=== PATIENT | female | born 1955 | race Caucasian/White ===

== ENCOUNTER → 2017-05-19 | Outpatient (CLI) | payer BC ==
[~2017-05-19] MED LIST: ACYCLOVIR PO; BENTYL10 MG PO; CYCLOBENZAPRINE5 MG PO; LORAZEPAM INJ 2 MG/ML VIAL ONE; OMEPRAZOLE20 MG PO; PAROXETINE HCL20 MG PO; PROMETHAZINE HC25 M1 PO; RED YEAST RICE600 MG PO; TYLENOL WITH C1 EACH PO; XANAX2 MG PO
--- NOTE | 2017-05-21 13:36 | Diagnostic Imaging Report ---
History: Neck and left shoulder pain Comparison studies: None Technique: Sagittal T1, T2 and IR, axial T2 and axial gradient echo Intravenous contrast: None Findings: Alignment: Straightening of the cervical lordosis. Mild grade 1 retrolistheses of C5 over C6. No scoliosis. Cervicomedullary junction: No abnormalities. Patent foramen magnum. Soft tissues: No T2 hyperintense inflammatory changes. Spinal cord: Normal in size and signal from the foramen magnum through T4 Vertebrae: Normal in height and signal intensity. No fractures, infection or neoplasm. Degenerative changes: Disc degeneration with loss of T2 signal throughout the cervical spine with decrease disc space from C3 through C6. No Modic type I changes. C2-C3: Small central disc osteophyte complex. Patent canal and foramina C3-C4: Right uncinate process hypertrophy and facet hypertrophy without significant canal stenosis and mild right foraminal narrowing C4-C5: Bilateral uncinate process and facet hypertrophy without significant canal stenosis and mild bilateral foraminal narrowing C5-C6: Diffuse disc osteophyte complex, bilateral uncinate process hypertrophy and facet hypertrophy results in mild canal stenosis and moderate bilateral foraminal narrowing more prominent on the left C6-C7: No abnormalities. C7-T1: No abnormalities. IMPRESSION: 1. Moderate bilateral foraminal narrowing more prominent on the left and mild canal stenosis at C5-6 secondary to degenerative changes. 2. Mild foraminal narrowing at C3-4 on the right and C4-5 bilaterally, secondary to degenerative changes. 3. Diffuse disc degeneration without Modic type I changes. Other degenerative changes as described above Signed by: DR Vicente Fried M.D. on 05/21/2017 1:33 PM
== END ==
LOC: MRI 13:09
PROVIDERS: ATTEND Family Medicine
DX: M50.321 Other cervical disc degeneration at C4-C5 level (principal)
CPT/HCPCS: 72141; J2060

== ENCOUNTER → 2017-09-19 | Day surgery (SDC) | payer BC ==
[~2017-09-19] MED LIST changes: +DICYCLOMINE HCL10 MG PO; +FENTANYL CITRATE/PF 100MCG/2 ML INJ ONE; +LIDOCAINE HCL 2% LOCAL INJ 5 ML SDV VIAL INJ ONE; -LORAZEPAM INJ 2 MG/ML VIAL ONE; +LOSARTAN POTAS100 MG PO; +METOCLOPRAMIDE10 MG PO; +MIDAZOLAM HCL 2 MG/2 ML VIAL ONE; +PANTOPRAZOLE SO40 MG PO; +PROPOFOL IV EMULSION 10 MG/ML 50 ML VIAL ONE; +ZOFRAN ODT4 MG PO
[2017-09-19 12:15] LABS: BASOPHILS # (AUTO) 0.1 (0.0-0.1); BASOPHILS % 1.2 % (0.0-1.0); EOSINOPHILS # (AUTO) 0.2 (0.0-0.4); EOSINOPHILS % 3.3 % (0.0-6.0); HEMATOCRIT 41.4 % (34.2-44.1); HEMOGLOBIN 14.2 g/dL (12.0-16.0); LYMPHOCYTES # (AUTO) 1.5 (1.0-3.2); LYMPHOCYTES % 29.3 % (18.0-39.1); MEAN CORPUSCULAR HEMOGLOBIN 31.2 pg (28-32); MEAN CORPUSCULAR HGB CONC 34.3 g/dL (31-35); MONOCYTES # (AUTO) 0.7 (0.2-0.8); NEUTROPHILS # (AUTO) 2.7 (2.1-6.9); PLATELET COUNT 259 x10e3/uL (140-360); RED BLOOD COUNT 4.55 x10e6/uL (3.6-5.1)
[2017-09-19 12:30] LABS: INR 0.98; PROTHROMBIN TIME 12.2 seconds (11.9-14.5)
[2017-09-19 12:31] LABS: PARTIAL THROMBOPLASTIN TIME 26.8 seconds (23.8-35.5)
[2017-09-19 12:37] LABS: ALANINE AMINOTRANSFERASE 86 IU/L (0-55); ALBUMIN 4.4 g/dL (3.5-5.0); ALBUMIN/GLOBULIN RATIO 1.2 (0.8-2.0); ALKALINE PHOSPHATASE 104 IU/L (40-150); ANION GAP 14.9 mmol/L (8-16); BLOOD UREA NITROGEN 12 mg/dL (7-26); BUN/CREATININE RATIO 15 (6-25); CARBON DIOXIDE 24 mmol/L (22-29); CHLORIDE 109 mmol/L (98-107); CREATININE, SERUM 0.78 mg/dL (0.57-1.11); EST GLOMERULAR FILTRATION RATE > 60 ML/MIN (60-); GLUCOSE 97 mg/dL (74-118); POTASSIUM 3.9 mmol/L (3.5-5.1); SODIUM 144 mmol/L (136-145)
--- NOTE | 2017-09-19 14:00 | Operative Report ---
DATE OF PROCEDURE: September 19, 2017 REFERRING PHYSICIAN: Dr. Sveta Melo PROCEDURE PERFORMED: Esophagogastroduodenoscopy with esophageal dilatation. INDICATIONS FOR PROCEDURE: Dysphagia to solids, history of nausea and vomiting. MEDICATION: Patient was done under MAC. Please see anesthesiologist's note. PROCEDURE: With the patient in the left lateral decubitus position, the flexible fiberoptic Olympus gastroscope was introduced into the esophagus under direct visualization without any difficulty. There was some patchy erythema noted in the distal esophagus. A mild stricture was noted at the GE junction that was dilated to size 52[place]. The scope was then advanced with ease into the stomach traversing a small sliding hiatal hernia. Mucosa overlying the antrum and the body revealed some diffuse erythema and mild to moderate edema, and biopsies were obtained and sent to stain for H. pylori. The pylorus was of normal contour and shape. It was intubated with ease. The scope was advanced all the way to the 2nd portion of the duodenum. The scope was then withdrawn slowly. Mucosa overlying the proximal 2nd portion and the duodenal bulb appeared to be within normal limits. The scope was then withdrawn back into the stomach and retroflexed. The mucosa overlying the fundus and the cardia appeared to be within normal limits. The scope was then straightened out. The stomach was decompressed. The scope subsequently withdrawn. Patient tolerated the procedure well. IMPRESSION 1. Distal esophagitis, mild. 2. Mild stricture at gastroesophageal junction dilated to size 52[place]. 3. Small sliding hiatal hernia. 4. Gastritis, biopsied. Biopsies sent to stain for Helicobacter pylori. PLAN: Follow up histology. Continue Protonix 40 mg 1 p.o. a.c. b.i.d. Job#: [id number] RI cc:SVETA MELO MD
== END | disposition home or self-care (01) ==
LOC: OR 11:29
PROVIDERS: ATTEND Internal Medicine Gastroenterology
DX: K29.70 Gastritis, unspecified, without bleeding (principal); K22.2 Esophageal obstruction; K20.9 Esophagitis, unspecified; K44.9 Diaphragmatic hernia without obstruction or gangrene; K59.00 Constipation, unspecified; K21.9 Gastro-esophageal reflux disease without esophagitis; B17.10 Acute hepatitis C without hepatic coma; F32.9 Major depressive disorder, single episode, unspecified; F41.9 Anxiety disorder, unspecified; Z88.6 Allergy status to analgesic agent; Z91.041 Radiographic dye allergy status; Z01.810 Encounter for preprocedural cardiovascular examination; Z87.891 Personal history of nicotine dependence
CPT/HCPCS: 36415; 43239; 43450; 80053; 85025; 85610; 85730; 93005; J2001; J2250

== ENCOUNTER 2017-09-23 13:00 | Emergency (ER) | payer BC ==
[~2017-09-23] VITALS: Ht 160 cm; Wt 65.3 kg
[~2017-09-23 13:00] MED LIST changes: -FENTANYL CITRATE/PF 100MCG/2 ML INJ ONE; -LIDOCAINE HCL 2% LOCAL INJ 5 ML SDV VIAL INJ ONE; -MIDAZOLAM HCL 2 MG/2 ML VIAL ONE; -PROPOFOL IV EMULSION 10 MG/ML 50 ML VIAL ONE
[2017-09-23 14:10] LABS: BILIRUBIN,URINE NEGATIVE (NEGATIVE); CLARITY,URINE SL CLOUDY (CLEAR); COLOR,URINE YELLOW (YELLOW); KETONES,URINE NEGATIVE (NEGATIVE); LEUKOCYTE ESTERASE ,URINE TRACE (NEGATIVE); NITRITE,URINE NEGATIVE (NEGATIVE); PROTEIN,URINE DIPSTICK NEGATIVE (NEGATIVE); URINE UROBILINOGEN 0.2 mg/dL (0.2 - 1)
[2017-09-23 14:21] LABS: BACTERIA,URINE MANY /HPF; EPITHELIAL CELLS,URINE MODERATE /LPF; TRANSITIONAL EPI CELLS,URINE FEW
[2017-09-23 14:21] LABS: BASOPHILS # (AUTO) 0.1 (0.0-0.1); BASOPHILS % 1.5 % (0.0-1.0); EOSINOPHILS # (AUTO) 0.1 (0.0-0.4); EOSINOPHILS % 2.9 % (0.0-6.0); HEMATOCRIT 39.8 % (34.2-44.1); HEMOGLOBIN 13.7 g/dL (12.0-16.0); LYMPHOCYTES # (AUTO) 1.7 (1.0-3.2); LYMPHOCYTES % 36.5 % (18.0-39.1); MEAN CORPUSCULAR HEMOGLOBIN 31.6 pg (28-32); MEAN CORPUSCULAR HGB CONC 34.4 g/dL (31-35); MEAN CORPUSCULAR VOLUME 91.9 fL (81-99); MONOCYTES # (AUTO) 0.6 (0.2-0.8); MONOCYTES % 14.2 % (4.4-11.3); NEUTROPHILS % 44.7 % (38.7-80.0); PLATELET COUNT 265 x10e3/uL (140-360); RED BLOOD COUNT 4.33 x10e6/uL (3.6-5.1); RED CELL DISTRIBUTION WIDTH 12.8 % (11.7-14.4)
[2017-09-23 14:40] LABS: ALANINE AMINOTRANSFERASE 96 IU/L (0-55); ALBUMIN 4.4 g/dL (3.5-5.0); ALBUMIN/GLOBULIN RATIO 1.3 (0.8-2.0); ALKALINE PHOSPHATASE 94 IU/L (40-150); ANION GAP 14.6 mmol/L (8-16); BLOOD UREA NITROGEN 12 mg/dL (7-26); BUN/CREATININE RATIO 15 (6-25); CALCIUM 9.8 mg/dL (8.4-10.2); CARBON DIOXIDE 25 mmol/L (22-29); CHLORIDE 105 mmol/L (98-107); CREATININE, SERUM 0.81 mg/dL (0.57-1.11); EST GLOMERULAR FILTRATION RATE > 60 ML/MIN (60-); GLUCOSE 95 mg/dL (74-118); POTASSIUM 3.6 mmol/L (3.5-5.1); SODIUM 141 mmol/L (136-145)
[2017-09-23] MEDS ORDERED: ONDANSETRON HCL INJ 2 MG/ML VIAL IV NR (15:15)
[2017-09-23] MEDS ORDERED: HYDROCODONE/APAP 10MG-325MG TAB PO ONE (15:15)
[2017-09-23] MEDS ORDERED: SODIUM CHLORIDE 0.9% 1000ML 1,000 ML IV ONE (15:30)
[2017-09-23] MEDS ORDERED: HYDROMORPHONE 1MG/1ML INJ IV NR (15:30)
--- NOTE | 2017-09-23 16:52 | Diagnostic Imaging Report ---
PROCEDURE:US GALLBLADDER COMPARISON:None. INDICATIONS:abdominal pain FINDINGS: LIVER: Size:14.8 cm in the right midclavicular line, normal Appearance:Increased echogenicity, smooth contour Mass:No focal solid masses. Multiple simple hepatic cysts measuring 1.5 x 1.1 x 1.3 cm in the right hepatic lobe, 2.6 x 1.2 x 2.1 cm in the right hepatic lobe, and 1.1 x 0.7 x 1.1 cm in the left hepatic lobe. GALLBLADDER: Stones/Sludge:None Appearance:No wall thickening, pericholecystic fluid or hydrops. Sonographic Espinoza's Sign:Negative BILE DUCTS: Intrahepatic Ducts:No dilation Extrahepatic Ducts:Common bile duct measures 0.2 cm, no dilatation. PANCREAS: Visualized portions of the neck and proximal body are normal. RIGHT KIDNEY: Size:10 cm in length Echogenicity:Normal Collecting System:No hydronephrosis Stone:None Cyst/Mass:None VESSELS: Aorta:Visualized portions are normal. Inferior Vena Cava:Visualized portions are normal. Main Portal Vein:0.9 cm, normal size with hepatopetal flow. FREE FLUID: No ascites or pleural effusions. CONCLUSION: 1. No cholelithiasis or sonographic evidence of acute cholecystis. 2. Hepatic steatosis. 3. Multiple hepatic simple cysts. Dictated by: Stephen Bowman M.D. on 09/23/2017 at 16:56 Electronically approved by: Stephen Bowman M.D. on 09/23/2017 at 16:56
--- NOTE | 2017-09-23 17:00 | Diagnostic Imaging Report ---
PROCEDURE: CT ABDOMEN AND PELVIS WITHOUT CONTRAST TECHNIQUE: The abdomen and pelvis were scanned utilizing a multidetector helical scanner from the diaphragm to the lesser trochanter. No IV contrast was administered because of contrast allergy. Coronal and sagittal multiplanar reformations were obtained. DLP: 218.83 mGy-cm COMPARISON: None. INDICATIONS: ABDOMINAL PAIN RLQ FINDINGS: ABSENCE OF INTRAVENOUS CONTRAST DECREASES SENSITIVITY FOR DETECTION OF FOCAL LESIONS AND VASCULAR PATHOLOGY. LOWER THORAX: Normal. HEPATOBILIARY: Multiple hepatic cysts measure up to 2.8 cm in size. Additional smaller hypodensities are too small to characterize but also probably represent cysts. No biliary ductal dilatation. No radiopaque gallstones or gallbladder wall thickening. SPLEEN: No splenomegaly. PANCREAS: No focal masses or ductal dilatation. ADRENALS: No adrenal nodules. KIDNEYS/URETERS: No hydronephrosis, stones, or suspicious contour abnormalities. PELVIC ORGANS/BLADDER: Unremarkable. PERITONEUM / RETROPERITONEUM: No free air or fluid. LYMPH NODES: No lymphadenopathy. VESSELS: Mild atherosclerotic calcification. GI TRACT: No distention or wall thickening. The appendix is normal. BONES AND SOFT TISSUES: Degenerative changes of the thoracolumbar spine with severe disc space narrowing at L5-S1 with vacuum disc and end plate sclerosis. IMPRESSION: No acute abnormalities in the abdomen and pelvis. No evidence of appendicitis. Dictated by: Stephen Bowman M.D. on 09/23/2017 at 17:04 Electronically approved by: Stephen Bomwan M.D. on 09/23/2017 at 17:04
[2017-09-23] MEDS ORDERED: HYDROMORPHONE 1MG/1ML INJ IV STA (17:12)
[2017-09-23 19:46] VITALS: BP 183/97
== END 2017-09-23 20:06 | disposition home or self-care (01) ==
LOC: ER 13:00
DX: R10.84 Generalized abdominal pain (principal); R11.0 Nausea; I10 Essential (primary) hypertension
CPT/HCPCS: 36415; 74176; 76705; 80053; 81001; 83690; 85025; 99284; J1170; J2405; J7030

== ENCOUNTER → 2017-09-30 | Outpatient (CLI) | payer BC ==
[~2017-09-30] MED LIST changes: +SINCALIDE 3 MCG/VIAL INJ ONE
--- NOTE | 2017-09-30 16:55 | Diagnostic Imaging Report ---
Hepatobiliary Scan with Gallbladder Ejection Fraction Clinical information: 61 F with chronic recurrent upper abdominal pain. Report: Following intravenous administration of 6.6 millicuries of Tc-99m mebrofenin, dynamic images of the abdomen in the anterior projection were obtained through 38 minutes. Sincalide (CCK analog) 1.4 micrograms was administered intravenously over 30 minutes with additional imaging for determination of gallbladder ejection fraction. Perfusion to the liver is normal. Extraction of tracer from the blood pool by the liver parenchyma is normal. Tracer is seen promptly within the biliary tract. The gallbladder begins to fill by 32 minutes post-injection of tracer and fills adequately. Tracer is seen in the small bowel by 12 minutes. The gallbladder ejection fraction with administration of sincalide is 69% (normal greater than 40%). Impression: 1. Filling of the gallbladder excludes the diagnosis of acute cystic duct obstruction/acute cholecystitis. 2. Normal gallbladder ejection fraction of 69% does not support the clinical diagnosis of chronic cholecystitis/gallbladder dyskinesia. Signed by: Dr. Sonia De Dios M.D. on 09/30/2017 4:51 PM
== END ==
LOC: US 09:10
PROVIDERS: ATTEND Internal Medicine Gastroenterology
DX: R10.10 Upper abdominal pain, unspecified (principal); R11.0 Nausea; B19.20 Unspecified viral hepatitis C without hepatic coma
CPT/HCPCS: 78227; A9537; J2805

== ENCOUNTER → 2017-11-08 | Outpatient (CLI) | payer BC ==
[~2017-11-08] MED LIST changes: +FENTANYL CITRATE/PF 100MCG/2 ML INJ ONE; +MIDAZOLAM HCL 2 MG/2 ML VIAL ONE; -SINCALIDE 3 MCG/VIAL INJ ONE
--- NOTE | 2017-11-08 14:21 | Diagnostic Imaging Report ---
PROCEDURE:IR BIOPSY LIVER COMPARISON:CT abdomen and pelvis without contrast 09/23/2017 Preprocedure diagnosis: Possible cirrhosis Post procedure diagnosis: Possible cirrhosis Sedation/anesthesia: Fentanyl 100 mcg intravenous, Versed 1 mg intravenous. The patient's heart rate and pulse oximetry were continuously monitored by the interventional radiology nurse. Blood pressure was monitored at 5 minute intervals. Estimated blood loss: Less than 5 cc Blood products administered: None Implants/grafts: None Additional medications: Lidocaine 1% local anesthesia SAMPLES: Core biopsy specimens x3 Complications: No immediate Disposition: Radiology holding area Condition at completion of procedure: Stable FINDINGS: After informed consent was obtained, the patient was placed in the right anterior oblique position. A safe entry route into the right lobe of the liver was identified by ultrasound and the overlying skin was prepped and draped in usual sterile fashion. Lidocaine 1% was delivered for local anesthesia. Under ultrasound guidance, a 17 gauge needle guide was advanced into the right lobe of the liver. Subsequently, a total of 3 core biopsy specimens were obtained using an 18 gauge, 2 cm throw core biopsy apparatus. Fur Operator sonographic images were stored. Specimens were placed in formalin for pathologic analysis. At the conclusion of sampling a small amount of Gelfoam slurry was injected through the guide into the parenchymal tract and along the liver capsule for augmentation of hemostasis. Post-procedure sonographic images of the liver showed no perihepatic hematoma. A sterile dressing was applied. The patient tolerated the procedure well and there were no immediate post-procedural complications. The patient was transferred in good condition to the recovery area for observation. CONCLUSION: Uncomplicated ultrasound-guided random liver biopsy. Samples sent to Pathology for analysis. Dictated by: Yovani Landon M.D. on 11/08/2017 at 12:52 Electronically approved by: Yovani Landon M.D. on 11/08/2017 at 12:52
--- NOTE | 2017-11-08 14:21 | Diagnostic Imaging Report ---
PROCEDURE:ULTRASOUND GUIDANCE FOR PROCEDURE COMPARISON:None. INDICATIONS: Possible Cirrhosis PROCEDURE: See conclusion CONCLUSION: For full dictated report, please refer to "BIOPSY LIVER" from 11/08/2017. Dictated by: Yovani Landon M.D. on 11/08/2017 at 12:53 Electronically approved by: Yovani Landon M.D. on 11/08/2017 at 12:53
== END ==
LOC: US 08:28
PROVIDERS: ATTEND Internal Medicine Gastroenterology
DX: K76.9 Liver disease, unspecified (principal); K20.9 Esophagitis, unspecified; K29.70 Gastritis, unspecified, without bleeding; R11.0 Nausea; R10.31 Right lower quadrant pain; I10 Essential (primary) hypertension
CPT/HCPCS: 47000; 76942; 88307; 88313; J2250

== ENCOUNTER 2018-01-31 05:00 | Emergency (ER) | payer BC, MEDICARE ==
[~2018-01-31] VITALS: Ht 160 cm; Wt 65.3 kg
[~2018-01-31 05:00] MED LIST changes: -FENTANYL CITRATE/PF 100MCG/2 ML INJ ONE; -MIDAZOLAM HCL 2 MG/2 ML VIAL ONE
--- OUTSIDE RECORDS SUMMARY | 2018-01-31 05:03 | XMS REPORT | Continuity of Care Document ---
Author Author [facility] Interface Address Unknown Phone Unavailable Problems Problem Status Onset Date Classification Date Reported Comments Source M54.2 - CERVICALGIA [facility] [place] [facility] Diagnosis: Abdominal pain 12/09/2013 12/11/2013 [facility] Discharge Diagnosis: Nausea and vomiting 12/09/2013 12/11/2013 [facility] Discharge Diagnosis: Gastroenteritis, acute 12/08/2013 12/11/2013 [facility] VOMITING Active 12/08/2013 [facility] Anxiety Resolved Problem [facility] Depression Resolved Problem 03/11/2017 [facility] Medications Medication Details Route Status Patient Instructions Ordering Provider Order Date Source Alprazolam 0.25 MG Oral Tablet [Xanax] 0.25 mg=1 tab, PO, TID, Anxiety, # 12 tab, 0 Refill(s) Active 12/09/2013 [facility] Promethazine Hydrochloride 25 MG Oral Tablet [Phenergan] 25 mg=1 tab, PO, Q4H, Nausea, # 15 tab, 0 Refill(s) Active 12/09/2013 [facility] Pepcid 20 mg, 2 mL, Route: IV, Drug form: INJ, ONCE, Dosing Weight 61.364, kg, Start date: 12/09/13 2:21:00, Stop date: 12/09/13 2:21:00Notes: (Same as: Pepcid) Can be dilute in 5-10cc NS IVP: Slow IV push over at least 2 minutes. Inactive 12/09/2013 [facility] Ativan 1 mg, 0.5 mL, Route: IVP, Drug form: INJ, ONCE, Dosing Weight 61.364, kg, Priority: STAT, Start date: 12/09/13 2:20:00, Stop date: 12/09/13 2:20:00Notes: (Same as: Ativan) Inactive 12/09/2013 [facility] Phenergan 12.5 mg, 0.5 mL, Route: IVPB, ONCE, Dosing Weight 61.364, kg, Priority: STAT, Start date: 12/09/13 2:00:00, Stop date: 12/09/13 2:00:00Notes: Do not give IV push. (Same as: Phenergan) Inactive 12/09/2013 [facility] Reglan 10 mg, 2 mL, Route: IVP, Drug form: INJ, ONCE, Dosing Weight 61.364, kg, Priority: STAT, Start date: 12/09/13 2:00:00, Stop date: 12/09/13 2:00:00Notes: (Same as: Reglan) Inactive 12/09/2013 [facility] Ketorolac 30 mg, Route: IVP, Drug form: INJ, ONCE, Dosing Weight 61.364, kg, Priority: STAT, Start date: 12/09/13 0:32:00, Stop date: 12/09/13 0:32:00 Inactive 12/09/2013 [facility] Zofran 4 mg, Route: IVP, Drug form: INJ, ONCE, Dosing Weight 61.364, kg, Priority: STAT, Start date: 12/09/13 0:32:00, Stop date: 12/09/13 0:32:00 Inactive 12/09/2013 [facility] Sodium Chloride 0.154 MEQ/ML Injectable Solution 1,000 mL, 1,000 ml/hr, Infuse Over: 1 hr, Route: IV, ONCE, Priority: STAT, Dosing Weight 61.364 kg, Start date: 12/09/13 0:31:00, Duration: 1 doses or times, Stop date: 12/09/13 0:31:00 Inactive 12/09/2013 [facility] Tylenol 650 mg, Route: PO, Drug form: TAB, ONCE, Dosing Weight 62.273, kg, Priority: STAT, Start date: 12/08/13 12:16:00, Stop date: 12/08/13 12:16:00 Inactive 12/08/2013 [facility] Morphine 4 mg, Route: IVP, Drug form: INJ, ONCE, Dosing Weight 62.273, kg, Priority: STAT, Start date: 12/08/13 11:39:00, Stop date: 12/08/13 11:39:00 Inactive 12/08/2013 [facility] Ondansetron 4 MG Disintegrating Tablet [Zofran] 4 mg=1 tab, PO, BID, Nausea and Vomiting, Dissolve tab under tongue, # 10 tab, 0 Refill(s)Special Instructions: Dissolve tab under tongue Active 12/08/2013 [facility] Ondansetron 4 mg, 2 mL, Route: IVP, Drug form: INJ, ONCE, Dosing Weight 62.273, kg, Priority: STAT, Start date: 12/08/13 11:13:00, Stop date: 12/08/13 11:13:00Notes: (Same as: Zofran) Inactive 12/08/2013 [facility] Sodium Chloride 0.154 MEQ/ML Injectable Solution 1,000 mL, 1000 ml/hr, Infuse Over: 1 hr, Route: IV, 1,000, Drug form: INJ, ONCE, Priority: STAT, Dosing Weight 62.273 kg, Start date: 12/08/13 11:13:00, Duration: 1 doses or times, Stop date: 12/08/13 11:13:00 Inactive 12/08/2013 [facility] Saline Flush 0.9% 10 mL, Route: IVP, Drug Form: INJ, Dosing Weight 62.273, kg, PRN, PRN Line Flush, Start date: 12/08/13 11:13:00, Duration: 30 day, Stop date: 01/07/14 11:12:00Notes: (Same as: BD Posiflush) Inactive 12/08/2013 [facility] Allergies, Adverse Reactions, Alerts Substance Category Reaction Severity Reaction type Status Date Reported Comments Source iodinated radiocontrast dyes Assertion Drug allergy Active [facility] [place] morphine Assertion Drug allergy Active [facility] [place] Immunizations Immunization Date Given Site Status Last Updated Comments Source Results Order Name Results Value Reference Range Date Interpretation Comments Source Spine cervical series DX Spine cervical series DX HISTORY: - CERVICALGIA TECHNIQUE: AP, lateral, bilateral oblique, and odontoid views of the cervical spine. COMPARISON: None available. FINDINGS: Grade 1 anterolisthesis of C3 on C4 is seen. There is diffuse loss of intervertebral disc space height and osteophyte formation which is worst at C4- C5 and C5-C6. Uncovertebral degenerative changes and facet arthropathy are seen throughout the mid cervical spine. There is bilateral neuroforaminal narrowing at C3-C4 and to a lesser extent at C4-C5 and C5-C6 on the left and C4-C5 on the right. Paracervical soft tissues are within normal limits. The lung apices are clear. IMPRESSION: Moderate to advanced cervical spondylosis as above. [id number] 03/08/2017 - - Read by: Efrain Marte MD Dictated Date/time: 03/09/17 08:20 Electronically Signed by: Efrain Marte MD 03/09/17 08:25 FINAL REPORT [facility] [place] URINE AND STOOL UA Urobilinogen <=1.0 mg/dL 0.1 - 1.0 12/09/2013 [facility] URINE AND STOOL UA Sq Epi Many /LPF Few /LPF 12/09/2013 [facility] URINE AND STOOL UA Nitrite Negative (12/09/13 4:15 AM) Negative 12/09/2013 [facility] URINE AND STOOL UA Leuk Est Small *ABN* (12/09/13 4:15 AM) Negative 12/09/2013 [facility] URINE AND STOOL UA Mucus Many /LPF None Seen /LPF 12/09/2013 [facility] URINE AND STOOL UA Bacteria Occasional /HPF None Seen /HPF 12/09/2013 [facility] URINE AND STOOL UA WBC 2 /HPF 0 - 5 12/09/2013 [facility] URINE AND STOOL UA RBC 29 /HPF 0 - 2 12/09/2013 [facility] URINE AND STOOL UA Turbidity Marked *ABN* (12/09/13 4:15 AM) Clear 12/09/2013 [facility] URINE AND STOOL UA Color Yellow *NA* (12/09/13 4:15 AM) Yellow 12/09/2013 [facility] URINE AND STOOL UA Protein 30 mg/dL Negative mg/dL 12/09/2013 [facility] URINE AND STOOL UA pH 6.0 5.0 - 8.0 12/09/2013 [facility] URINE AND STOOL UA Spec Grav 1.021 <=1.030 12/09/2013 [facility] URINE AND STOOL UA Blood Negative (12/09/13 4:15 AM) Negative 12/09/2013 [facility] URINE AND STOOL UA Bili Negative *NA* (12/09/13 4:15 AM) Negative 12/09/2013 [facility] URINE AND STOOL UA Ketones 80 mg/dL Negative mg/dL 12/09/2013 [facility] URINE AND STOOL UA Glucose Negative mg/dL Negative mg/dL 12/09/2013 [facility] CARDIAC ENZYMES Troponin-I null 0.00 - 0.40 12/09/2013 [facility] CARDIAC ENZYMES Total CK 69 unit/L 12 - 191 12/09/2013 [facility] CARDIAC ENZYMES CK MB 1.2 ng/mL 0.5 - 3.6 12/09/2013 [facility] CARDIAC ENZYMES CK MB Index 1.7 0.0 - 2.5 12/09/2013 [facility] CHEM PANEL Lipase Lvl 91 unit/L 73 - 393 12/09/2013 [facility] CHEM PANEL eGFR 83 mL/min/1.73m2 12/09/2013 1Result Comment: The eGFR is calculated using the CKD-EPI formula. In most young, healthy individuals the eGFR will be >90 mL/min/1.73m2. The eGFR declines with age. An eGFR of 60-89 may be normal in some populations, particularly the elderly, for whom the CKD-EPI formula has not been extensively validated. Use of the eGFR is not recommended in the following populations: Individuals with unstable creatinine concentrations, including patients and those with serious co-morbid conditions. Patients with extremes in muscle mass or diet. The data above are obtained from the National Kidney Disease Education Program (NKDEP) which additionally recommends that when the eGFR is used in patients with extremes of body mass index for purposes of drug dosing, the eGFR should be multiplied by the estimated BMI. [facility] CHEM PANEL Bili Total 0.6 mg/dL 0.2 - 1.3 12/09/2013 [facility] CHEM PANEL Albumin Lvl 4.2 g/dL 3.5 - 5.0 12/09/2013 [facility] CHEM PANEL Total Protein 7.8 g/dL 6.4 - 8.4 12/09/2013 [facility] CHEM PANEL ALT 73 unit/L 0 - 65 12/09/2013 [facility] CHEM PANEL AST 45 unit/L 0 - 37 12/09/2013 [facility] CHEM PANEL Alk Phos 107 unit/L 39 - 136 12/09/2013 [facility] CHEM PANEL Sodium Lvl 141 meq/L 135 - 145 12/09/2013 [facility] CHEM PANEL CO2 27 meq/L 24 - 32 12/09/2013 [facility] CHEM PANEL Calcium Lvl 9.5 mg/dL 8.5 - 10.5 12/09/2013 [facility] CHEM PANEL Potassium Lvl 3.6 meq/L 3.5 - 5.1 12/09/2013 [facility] CHEM PANEL Chloride Lvl 105 meq/L 95 - 109 12/09/2013 [facility] CHEM PANEL Glucose Lvl 123 mg/dL 70 - 99 12/09/2013 2Interpretive Data: Adult reference range values reflect the clinical guidelines of the [place] [employer]. [facility] CHEM PANEL BUN 8 mg/dL 7 - 22 12/09/2013 [facility] CHEM PANEL Creatinine Lvl 0.8 mg/dL 0.5 - 1.4 12/09/2013 [facility] CHEM PANEL A/G Ratio 1.2 0.7 - 1.6 12/09/2013 [facility] CHEM PANEL AGAP 12.6 meq/L 10.0 - 20.0 12/09/2013 [facility] CHEM PANEL Globulin 3.6 g/dL 2.0 - 4.0 12/09/2013 [facility] CHEM PANEL B/C Ratio 10 6 - 25 12/09/2013 [facility] HEMATOLOGY Lymphocytes 7.2 % 20.0 - 40.0 12/09/2013 [facility] HEMATOLOGY Segs 85.4 % 45.0 - 75.0 12/09/2013 [facility] HEMATOLOGY Monocytes # 0.7 K/CMM 0.0 - 0.8 12/09/2013 [facility] HEMATOLOGY Segs-Bands # 8.7 K/CMM 1.5 - 8.1 12/09/2013 [facility] HEMATOLOGY Lymphocytes # 0.7 K/CMM 1.0 - 5.5 12/09/2013 [facility] HEMATOLOGY Basophils 0.5 % 0.0 - 1.0 12/09/2013 [facility] Monocytes 6.9 % 2.0 - 12.0 12/09/2013 [facility] HEMATOLOGY Platelet 338 K/CMM 133 - 450 12/09/2013 [facility] HEMATOLOGY RDW 13.8 % 11.5 - 14.5 12/09/2013 [facility] MCHC 34.2 g/dL 32.0 - 36.0 12/09/2013 [facility] HEMATOLOGY MPV 8.8 fL 7.4 - 10.4 12/09/2013 [facility] HEMATOLOGY MCV 92.6 fL 80.0 - 98.0 12/09/2013 [facility] MCH 31.7 pg 27.0 - 31.0 12/09/[address] [facility] WBC 10.2 K/CMM 3.7 - 10.4 12/09/[address] [facility] Hgb 14.8 g/dL 12.0 - 16.0 12/09/2013 [facility] HEMATOLOGY Hct 43.1 % 36.0 - 48.0 12/09/2013 [facility] HEMATOLOGY RBC 4.65 M/CMM 4.20 - 5.40 12/09/2013 [facility] Abdomen/Pelvis wo IV contrast CT Abdomen/Pelvis wo IV contrast CT CT abdomen and pelvis without IV contrast, Dec 09, 2013 02:47:00 AM CLINICAL HISTORY: Vomiting ; See Clinic Indication TECHNIQUE: Routine 5mm thick axial images of the abdomen and pelvis were obtained without any contrast. Coronal and sagittal reformations were created. COMPARISON: None FINDINGS: Visualized lung bases are clear. The study is limited without the use of IV contrast for evaluation of the visceral parenchymal organs. However the liver, spleen, pancreas, and adrenal glands are grossly normal. Minimal bilateral medullary nephrocalcinosis is present. Ureters are normal. Partially distended bladder is unremarkable. Gallbladder is present. Multiple hepatic cysts are present. Uterus and ovaries are present. Small hiatal hernia is present. Colon is normal completely collapsed. Otherwise, the stomach, small intestine, and colon are grossly unremarkable. Appendix is normal. No free air or free fluid is present. No mesenteric or retroperitoneal lymphadenopathy is present. Bones demonstrate L5/S1 degenerative disc disease. IMPRESSION: Small hiatal hernia. SL: 14 12/09/2013 - - Read by: Dipti Boyd MD Dictated Date/time: 12/09/13 03:42 Electronically Signed by: Dipti Boyd MD 12/09/13 03:45 FINAL REPORT [facility] Gallbladder US Gallbladder US Gall Bladder US - Dec 09, 2013 01:26:47 AM . CLINICAL INDICATION: See Clinic Indication ; Abdominal pain, RUQ COMPARISON: None TECHNIQUE: Multiplanar grayscale and color Doppler ultrasound images of the abdomen were obtained. FINDINGS: Liver demonstrates normal echogenicity without a discernable mass. Main portal vein is patent with hepatopetal flow. No intrahepatic biliary ductal dilatation is present. Common duct measures 3 mm. Gallbladder is normal without gallstones. Gallbladder wall thickness is normal. No pericholecystic fluid is present. No sonographic Espinoza's sign is elicited. Pancreas is unremarkable. Right kidney is normal in size, shape, and echotexture without a mass or hydronephrosis. Right kidney measures 10.3 x 4 x 4 cm. Inferior vena cava is unremarkable as visualized. No free fluid is visualized. IMPRESSION: Negative study. 12/09/2013 - - Read by: Dipti Boyd MD Dictated Date/time: 12/09/13 01:43 Electronically Signed by: Dipti Boyd MD 12/09/13 01:45 FINAL REPORT [facility] URINE AND STOOL UA Urobilinogen <=1.0 mg/dL 0.1 - 1.0 12/08/2013 [facility] URINE AND STOOL UA Hyal Cast 1 /LPF 0 - 2 12/08/2013 [facility] URINE AND STOOL UA Mucus Many /LPF None Seen /LPF 12/08/2013 [facility] URINE AND STOOL UA Bacteria Occasional /HPF None Seen /HPF 12/08/2013 [facility] URINE AND STOOL UA Glucose Negative mg/dL Negative mg/dL 12/08/2013 [facility] URINE AND STOOL UA Ketones Trace mg/dL Negative mg/dL 12/08/2013 [facility] URINE AND STOOL UA Bili Negative *NA* (12/08/13 12:19 PM) Negative 12/08/2013 [facility] URINE AND STOOL UA Blood Negative (12/08/13 12:19 PM) Negative 12/08/2013 [facility] URINE AND STOOL UA Leuk Est Negative (12/08/13 12:19 PM) Negative 12/08/2013 [facility] URINE AND STOOL UA Nitrite Negative (12/08/13 12:19 PM) Negative 12/08/2013 [facility] URINE AND STOOL UA Sq Epi Few /LPF Few /LPF 12/08/2013 [facility] URINE AND STOOL UA Protein Negative mg/dL Negative mg/dL 12/08/2013 [facility] URINE AND STOOL UA RBC 1 /HPF 0 - 2 12/08/2013 [facility] URINE AND STOOL UA WBC 1 /HPF 0 - 5 12/08/2013 [facility] URINE AND STOOL UA Spec Grav 1.020 <=1.030 12/08/2013 [facility] URINE AND STOOL UA Turbidity Slight *ABN* (12/08/13 12:19 PM) Clear 12/08/2013 [facility] URINE AND STOOL UA Color Yellow *NA* (12/08/13 12:19 PM) Yellow 12/08/2013 [facility] URINE AND STOOL UA pH 7.0 5.0 - 8.0 12/08/2013 [facility] CHEM PANEL AST 69 unit/L 0 - 37 12/08/2013 [facility] CHEM PANEL Alk Phos 112 unit/L 39 - 136 12/08/2013 [facility] CHEM PANEL Bili Total 0.4 mg/dL 0.2 - 1.3 12/08/2013 [facility] CHEM PANEL Potassium Lvl 3.9 meq/L 3.5 - 5.1 12/08/2013 [facility] CHEM PANEL Chloride Lvl 106 meq/L 95 - 109 12/08/2013 [facility] CHEM PANEL Total Protein 8.1 g/dL 6.4 - 8.4 12/08/2013 [facility] CHEM PANEL ALT 86 unit/L 0 - 65 12/08/2013 [facility] CHEM PANEL CO2 29 meq/L 24 - 32 12/08/2013 [facility] CHEM PANEL Calcium Lvl 9.2 mg/dL 8.5 - 10.5 12/08/2013 [facility] CHEM PANEL Glucose Lvl 113 mg/dL 70 - 99 12/08/2013 2Interpretive Data: Adult reference range values reflect the clinical guidelines of the [place] [employer]. [facility] CHEM PANEL BUN 8 mg/dL 7 - 22 12/08/2013 [facility] CHEM PANEL Creatinine Lvl 0.8 mg/dL 0.5 - 1.4 12/08/2013 [facility] CHEM PANEL Sodium Lvl 141 meq/L 135 - 145 12/08/2013 [facility] CHEM PANEL Albumin Lvl 4.3 g/dL 3.5 - 5.0 12/08/2013 [facility] CHEM PANEL eGFR 83 mL/min/1.73m2 12/08/2013 1Result Comment: The eGFR is calculated using the CKD-EPI formula. In most young, healthy individuals the eGFR will be >90 mL/min/1.73m2. The eGFR declines with age. An eGFR of 60-89 may be normal in some populations, particularly the elderly, for whom the CKD-EPI formula has not been extensively validated. Use of the eGFR is not recommended in the following populations: Individuals with unstable creatinine concentrations, including patients and those with serious co-morbid conditions. Patients with extremes in muscle mass or diet. The data above are obtained from the National Kidney Disease Education Program (NKDEP) which additionally recommends that when the eGFR is used in patients with extremes of body mass index for purposes of drug dosing, the eGFR should be multiplied by the estimated BMI. [facility] CHEM PANEL A/G Ratio 1.1 0.7 - 1.6 12/08/2013 [facility] CHEM PANEL B/C Ratio 10 6 - 25 12/08/2013 [facility] CHEM PANEL Globulin 3.8 g/dL 2.0 - 4.0 12/08/2013 [facility] CHEM PANEL AGAP 9.9 meq/L 10.0 - 20.0 12/08/2013 [facility] CHEM PANEL Amylase Lvl 32 unit/L 25 - 115 12/08/2013 [facility] CHEM PANEL Lipase Lvl 130 unit/L 73 - 393 12/08/2013 [facility] HEMATOLOGY Eosinophils 0.1 % 0.0 - 4.0 12/08/2013 [facility] HEMATOLOGY Monocytes # 0.4 K/CMM 0.0 - 0.8 12/08/2013 [facility] HEMATOLOGY Basophils # 0.1 K/CMM 0.0 - 0.2 12/08/2013 [facility] HEMATOLOGY Segs-Bands # 6.4 K/CMM 1.5 - 8.1 12/08/2013 [facility] HEMATOLOGY Lymphocytes # 0.8 K/CMM 1.0 - 5.5 12/08/2013 [facility] HEMATOLOGY Basophils 1.1 % 0.0 - 1.0 12/08/2013 [facility] HEMATOLOGY Monocytes 5.7 % 2.0 - 12.0 12/08/2013 [facility] HEMATOLOGY Segs 83.2 % 45.0 - 75.0 12/08/2013 [facility] Lymphocytes 9.9 % 20.0 - 40.0 12/08/2013 [facility] HEMATOLOGY MPV 8.4 fL 7.4 - 10.4 12/08/2013 [facility] Platelet 318 K/CMM 133 - 450 12/08/[address] [facility] MCH 31.5 pg 27.0 - 31.0 12/08/[address] [facility] MCHC 33.4 g/dL 32.0 - 36.0 12/08/2013 [facility] HEMATOLOGY RDW 13.9 % 11.5 - 14.5 12/08/2013 [facility] HEMATOLOGY Hct 45.9 % 36.0 - 48.0 12/08/2013 [facility] HEMATOLOGY MCV 94.2 fL 80.0 - 98.0 12/08/2013 [facility] HEMATOLOGY RBC 4.87 M/CMM 4.20 - 5.40 12/08/2013 [facility] HEMATOLOGY WBC 7.7 K/CMM 3.7 - 10.4 12/08/2013 [facility] HEMATOLOGY Hgb 15.3 g/dL 12.0 - 16.0 12/08/2013 [facility] HEMATOLOGY PTT 28.6 s 22.9 - 35.8 12/08/2013 4Interpretive Data: Heparin Therapeutic Range: 57 - 92 Seconds [facility] HEMATOLOGY PT 12.9 s 12.0 - 14.7 12/08/2013 [facility] HEMATOLOGY INR 0.97 0.85 - 1.17 12/08/2013 3Interpretive Data: RECOMMENDED RANGES FOR PROTIME INR: 2.0-3.0 for most medical and surgical thromboembolic states. 2.5-3.5 for artificial heart valves and recurrent embolism. INR SHOULD BE USED ONLY FOR PATIENTS ON STABLE ANTICOAGULANT THERAPY. [facility] IMMUNOLOGY CDC HIV 4th GEN Negative (12/08/13 11:03 AM) Negative 12/08/2013 [facility] Vital Signs Vital Sign Value Date Comments Source Diastolic (mm Hg) 71 12/09/2013 [facility] Systolic (mm Hg) 127 12/09/2013 [facility] Heart Rate 86 12/09/2013 [facility] Respitory Rate 18 12/09/2013 [facility] Diastolic (mm Hg) 69 12/09/2013 [facility] Systolic (mm Hg) 130 12/09/2013 [facility] Respitory Rate 18 12/09/2013 [facility] Height 160.02 cm 12/09/2013 [facility] BMI Calculated 23.96 12/09/2013 [facility] Weight 61.364 12/09/2013 [facility] Temperature Oral (F) 97.2 F 12/09/2013 [facility] Respitory Rate 20 12/09/2013 [facility] Diastolic (mm Hg) 116 12/09/2013 [facility] Heart Rate 102 12/09/2013 [facility] Systolic (mm Hg) 168 12/09/2013 [facility] Respitory Rate 16 12/08/2013 [facility] Heart Rate 89 12/08/2013 [facility] Diastolic (mm Hg) 79 12/08/2013 [facility] Temperature Oral (F) 98.0 F 12/08/2013 [facility] Systolic (mm Hg) 136 12/08/2013 [facility] Diastolic (mm Hg) 93 12/08/2013 [facility] Systolic (mm Hg) 129 12/08/2013 [facility] Diastolic (mm Hg) 93 12/08/2013 [facility] Systolic (mm Hg) 129 12/08/2013 [facility] Weight 62.273 12/08/2013 [facility] Height 160.02 cm 12/08/2013 [facility] BMI Calculated 24.32 12/08/2013 [facility] Temperature Oral (F) 97.9 F 12/08/2013 [facility] Heart Rate 104 12/08/2013 [facility] Respitory Rate 20 12/08/2013 [facility] Encounters Location Location Details Encounter Type Encounter Number Reason For Visit Attending Provider ADM Date DC Date Status Source [facility] [id number] Madhu Reynoldsrenate 12/08/2013 12/08/2013 [facility] [id number] Bertin Ranjittj 12/09/2013 12/09/2013 [facility] [place] [facility] [id number] Nasim Melo 03/08/2017 03/09/2017 [facility] Procedures Procedure Code Date Perfomer Comments Source Ovarian operation<sup>1</sup> [id number] left ovary [facility] [place] Ovarian operation<sup>1</sup> [id number] 1left ovary removed [facility]
[2018-01-31] MEDS ORDERED: ONDANSETRON HCL 4 MG ORAL DISINTEGRATING TAB ONE (05:13)
[2018-01-31] MEDS ORDERED: PROMETHAZINE HCL (IM) 25 MG/ML VIAL ONE (05:21)
[2018-01-31] MEDS ORDERED: ONDANSETRON HCL 4 MG ORAL DISINTEGRATING TAB PO ONE (05:30)
[2018-01-31] MEDS ORDERED: LORAZEPAM 1 MG TAB PO ONE (05:30)
[2018-01-31] MEDS ORDERED: PROMETHAZINE HCL (IM) 25 MG/ML VIAL IM ONE (05:30)
--- NOTE | 2018-01-31 06:59 | Diagnostic Imaging Report ---
EXAM: CHEST SINGLE (PORTABLE), AP 1 view INDICATION: Vomiting, shortness of breath COMPARISON: None FINDINGS: LINES/TUBES: None LUNGS: No consolidations or edema. PLEURA: No effusions or pneumothorax. HEART AND MEDIASTINUM: Normal size and contour. BONES AND SOFT TISSUES: No acute findings. IMPRESSION: No acute thoracic abnormality. Signed by: Dr. Eryn Sarabia M.D. on 01/31/2018 6:55 AM
== END 2018-01-31 06:38 | disposition home or self-care (01) ==
LOC: ER 05:00
DX: F41.1 Generalized anxiety disorder (principal)
CPT/HCPCS: 36415; 71045; 82948; 96372; 99283; J2550; Q0162

== ENCOUNTER → 2019-10-24 | Outpatient (CLI) | payer OTHER ==
[~2019-10-24] MED LIST changes: +ADVIL200 M1 PO
== END ==
LOC: RAD 05:00 → EDSTATUS 10-29 12:00
PROVIDERS: ATTEND Internal Medicine Gastroenterology
DX: Z01.818 Encounter for other preprocedural examination (principal); R19.7 Diarrhea, unspecified; R10.9 Unspecified abdominal pain; R11.2 Nausea with vomiting, unspecified; R12 Heartburn; K59.00 Constipation, unspecified; Z53.8 Procedure and treatment not carried out for other reasons; Z11.59 Encounter for screening for other viral diseases
CPT/HCPCS: 93005; U0002

== ENCOUNTER 2024-04-17 14:38 | Emergency (ER) | payer MEDICARE ==
[~2024-04-17] VITALS: Ht 160 cm; Wt 63.5 kg
[~2024-04-17 14:38] MED LIST changes: +ACYCLOVIR200 MG PO; +BENADRYL25 M1 PO; +CYCLOBENZAPRINE10 MG PO; +LINZESS145 MCG; +METAMUCIL; +MULTI-VITAMIN1 EAC1; +ONDANSETRON ODT4 MG PO
[2024-04-17 14:47] VITALS: TEMP 98.3
[2024-04-17] MEDS: METOCLOPRAMIDE HCL 10 MG/2ML VIAL IV ONE (17:27)
[2024-04-17] MEDS: SODIUM CHLORIDE 0.9% 1000ML 1,000 ML IV ONE (17:28)
[2024-04-17] MEDS: CHLORDIAZEPOXIDE HCL 25 MG CAP PO ONE (17:28)
[2024-04-17 17:54] LABS: BASOPHILS # (AUTO) 0.1 (0.0-0.1); BASOPHILS % 1.1 % (0.0-1.0); EOSINOPHILS # (AUTO) 0.1 (0.0-0.4); EOSINOPHILS % 1.6 % (0.0-6.0); HEMATOCRIT 42.4 % (34.2-44.1); HEMOGLOBIN 13.4 g/dL (12.0-16.0); LYMPHOCYTES # (AUTO) 1.6 (1.0-3.2); LYMPHOCYTES % 22.7 % (18.0-39.1); MEAN CORPUSCULAR HEMOGLOBIN 32.1 pg (28-32); MEAN CORPUSCULAR HGB CONC 31.6 g/dL (31-35); MEAN CORPUSCULAR VOLUME 101.7 fL (81-99); MONOCYTES # (AUTO) 0.7 (0.2-0.8); MONOCYTES % 9.4 % (4.4-11.3); NEUTROPHILS # (AUTO) 4.6 (2.1-6.9); NEUTROPHILS % 65.1 % (38.7-80.0); PLATELET COUNT 327 x10e3/uL (140-360); RED BLOOD COUNT 4.17 x10e6/uL (3.6-5.1); RED CELL DISTRIBUTION WIDTH 12.9 % (11.7-14.4); WHITE BLOOD COUNT 7.01 x10e3/uL (4.8-10.8)
[2024-04-17 18:00] LABS: ALBUMIN 4.1 g/dL (3.5-5.0); ALBUMIN/GLOBULIN RATIO 1.5 (0.8-2.0); ANION GAP 16.9 mmol/L (8-16); BILIRUBIN,TOTAL 0.4 mg/dL (0.2-1.2); CALCIUM 9.4 mg/dL (8.4-10.2); POTASSIUM 3.9 mmol/L (3.5-5.1); TOTAL PROTEIN 6.9 g/dL (6.5-8.1)
[2024-04-17] MEDS ORDERED: CHLORDIAZEPOXID25 MG PO (18:31)
[2024-04-17] MEDS ORDERED: ONDANSETRON ODT4 MG PO (18:34)
[2024-04-17 18:55] VITALS: PULSE 84; RESP 16; O2SAT 99
== END 2024-04-17 19:07 | disposition home or self-care (01) ==
LOC: ER 14:53
DX: R11.2 Nausea with vomiting, unspecified (principal); F13.10 Sedative, hypnotic or anxiolytic abuse, uncomplicated; I10 Essential (primary) hypertension; B19.20 Unspecified viral hepatitis C without hepatic coma; M54.9 Dorsalgia, unspecified; G89.29 Other chronic pain
CPT/HCPCS: 36415; 80053; 82948; 85025; 99284; J2765; J7030; 93005

== ENCOUNTER → 2024-12-13 | Day surgery (SDC) | payer MEDICARE ==
[2024-12-12 12:52] LABS: BASOPHILS % 1.3 % (0.0-1.0); EOSINOPHILS % 9.1 % (0.0-6.0); LYMPHOCYTES % 25.2 % (18.0-39.1); MONOCYTES % 9.8 % (4.4-11.3); NEUTROPHILS % 54.5 % (38.7-80.0); RED CELL DISTRIBUTION WIDTH 14.2 % (11.7-14.4)
[~2024-12-13] MED LIST changes: +CELEBREX200 MG PO; +CHLORDIAZEPOXID25 MG PO; +FENTANYL CITRATE/PF 100MCG/2 ML INJ ONE; +FLUTICASONE P10.6 GM IH; +GABAPENTIN400 MG PO; +GLUCAGON FOR INJ 1 MG VIAL ONE; +HYOSCYAMINE SULFATE 0.5 MG/ML INJ ONE; +LACTATED RINGER'S 1,000 ML ONE; +LEVOCETIRIZINE D5 MG PO; +LEXAPRO20 MG PO; +LIDOCAINE HCL 2% LOCAL INJ 5 ML SDV VIAL INJ ONE; +METOCLOPRAMIDE HCL 10 MG/2ML VIAL ONE; +PROPOFOL IV EMULSION 10 MG/ML 20 ML VIAL ONE; +PROPOFOL IV EMULSION 50 ML IV ONE; +TRULANCE3 MG PO; +TYLENOL #3 PO
[2024-12-13 11:52] VITALS: TEMP 97.9
[2024-12-13 12:20] VITALS: BP 126/85; PULSE 87; RESP 15; O2SAT 98
== END | disposition home or self-care (01) ==
LOC: OR 08:33
PROVIDERS: ATTEND Internal Medicine Gastroenterology
DX: K63.5 Polyp of colon (principal); K29.70 Gastritis, unspecified, without bleeding; K22.2 Esophageal obstruction; K22.10 Ulcer of esophagus without bleeding; K31.84 Gastroparesis; K59.00 Constipation, unspecified; K31.89 Other diseases of stomach and duodenum; K58.9 Irritable bowel syndrome, unspecified; K21.9 Gastro-esophageal reflux disease without esophagitis; K62.89 Other specified diseases of anus and rectum; K64.8 Other hemorrhoids; I10 Essential (primary) hypertension; E78.5 Hyperlipidemia, unspecified; M54.2 Cervicalgia; M06.9 Rheumatoid arthritis, unspecified; F41.9 Anxiety disorder, unspecified; F32.A Depression, unspecified; Z88.6 Allergy status to analgesic agent; Z91.041 Radiographic dye allergy status; Z01.812 Encounter for preprocedural laboratory examination; Z79.899 Other long term (current) drug therapy; Z86.19 Personal history of other infectious and parasitic diseases
CPT/HCPCS: 36415; 43239; 43450; 45385; 85025; J1610; J1980; J2003; J2470; J2704 ×2; J2765; J3010; J7121; 45378